=== PATIENT | male | born 1965 | race Caucasian/White ===

== ENCOUNTER 2021-03-05 22:08 | Emergency (ER) | payer BC ==
--- NOTE | 2021-03-05 22:34 | EDM.PDOC ---
ED HPI GENERAL MEDICAL PROBLEM - General Chief Complaint: Gastrointestinal Problem Stated Complaint: PAIN IN TAILBONE AREA Time Seen by Provider: 03/05/21 22:34 Source of Information: Reports: Patient - History of Present Illness INITIAL COMMENTS - FREE TEXT/NARRATIVE: Rod Vincent is a 55 year old male that presents via triage with complaints of rectal pain over the course of the last year or longer. He notes that he was diagnosed with Covid on February 20 with symptoms beginning Saturday before that secludes of fever, body aches, cough, malaise, loss of taste or smell. Reports with the cough has had more increased rectal pain presents here for further assessment. Patient notes he been followed by his primary physician in [place] who is referred him to GI physician for follow-up colonoscopy as he had a colon polyp in 2012 by his last colonoscopy. Patient also notes he is primary physician Dr. Bullard recommended surgical follow-up for consideration of rubber band ligation for his hemorrhoids. Patient at home has previously used rectal cream without improvement. He is use Tylenol today for pain. Patient notes her last 2 days has had more rectal pain than baseline. He has had no fevers, abdominal pain, bloody or black stools. Patient is Covid symptoms has abated. Patient notes he gets his care through [facility] and due to the ER volumes tonight and him having to wait out in the parking lot prior to being seen he drove to this hospital for further assessment and care. Patient is to have a bowel movements without ongoing diarrhea or abdominal pain. He has not had recent bodies. Rectal Pain Score (Numeric/FACES): 8 - Related Data Allergies Allergy/AdvReac Type Severity Reaction Status Date / Time No Known Allergies Allergy Verified 03/05/21 22:38 Home Meds: Home Meds Acetaminophen [Tylenol] 2 tab PO Q6H PRN 03/05/21 [History] ED ROS GENERAL - Review of Systems Review Of Systems: See Below (all other 10 negative. Patient notes his Covid symptoms have abated. He has ongoing rectal pain as above.) ED EXAM, GI/ABD - Physical Exam Exam: See Below Exam Limited By: No Limitations General Appearance: Alert, Other (Sitting supine in the bed without difficulty.) Eyes: Bilateral: Normal Appearance Neck: Normal Inspection Respiratory/Chest: No Respiratory Distress, Lungs Clear Cardiovascular: Normal Peripheral Pulses, Regular Rate, Rhythm, Other (Heart rate 86 my exam.) GI/Abdominal Exam: Normal Bowel Sounds, Soft, Non-Tender, No Distention, No Mass Rectal (Males) Exam: Other (Multiple external hemorrhoids that are soft. They are friable. There is no fissures, fluctuance or perirectal abscess. Superior gluteal cleft is normal. The perineum visualized is normal.) Back Exam: Normal Inspection Extremities: Normal Inspection Neurological: Alert, Oriented, Normal Cognition, No Motor/Sensory Deficits Psychiatric: Normal Affect Skin Exam: Warm, Dry, No Rash Lymphatic: No Adenopathy Course - Vital Signs Text/Narrative:: Patient has signs of ongoing hemorrhoids. These are soft this time no evidence of life threats. Vitals are overall reassuring. Abdomen station is benign. Patient has had a recent Covid diagnosis and his Covid symptoms have abated. Supportive cares are indicated. Recommended to sitz bath, NSAIDs, Anusol, prior care follow-up in [place] and consideration of surgical intervention/ligation or banding as the patient has already discussed with primary care physician.. Return if fever, vomiting or black stools. Patient is medically still for discharge without life threats for emergent indications for surgery, imaging or antibiotics. Discharge meds: Motrin 6 oh mils p.o. 3 times daily quantity 21. Anusol suppository 25 mils OH every 12 hours quantity 20. Topical lidocaine 2%. Apply 1-2 mils OH every 8 hours as needed dispense 42 mils. Follow-up plan prior care physician for ongoing care and surgery as already referred. ER if worse or per discharge instructions for hemorrhoids. Patient is stable for discharge. At times conditions change or evolve. Please see discharge instructions and reasons to return and need for follow-up. Patient referred back to his primary care physician who is coordinating already with surgery for elective surgical repair of his hemorrhoids. There is currently no evidence of acute infection, abscess or indication for antibiotics/surgery. Patient be treated with medications as above and voiced understanding. He is comfortable with this plan and understands dental side effects of both medications. This record was completed with voice recognition and may contain errors in grammar, punctuation etc. Last Recorded V/S: Last Vital Signs Temp 36.6 C 03/05/21 22:39 Pulse 105 H 03/05/21 22:39 Resp 16 03/05/21 22:39 BP 137/85 03/05/21 22:39 Pulse Ox 97 03/05/21 22:39 - Orders/Labs/Meds Meds: Medications Discontinued Medications Generic Name Dose Route Start Last Admin Trade Name Krystal PRN Reason Stop Dose Admin Ibuprofen 600 mg 03/05/21 23:15 03/05/21 23:23 Ibuprofen 600 Mg Tab PO 03/05/21 23:16 600 mg ONETIME ONE Administration Lidocaine HCl 10 ml 03/05/21 23:15 03/05/21 23:23 Lidocaine 2% Jelly 10 Ml Urojet MUCMEM 03/05/21 23:16 10 ml ONETIME ONE Administration Departure - Departure Time of Disposition: 23:36 (stable) Disposition: Home, Self-Care 01 Condition: Good Clinical Impression: Hemorrhoids - Discharge Information *PRESCRIPTION DRUG MONITORING PROGRAM REVIEWED*: No *COPY OF PRESCRIPTION DRUG MONITORING REPORT IN PATIENT [place]HA: No Instructions: Hemorrhoids, [id number], Nonsurgical Procedures for Hemorrhoids, Care After, Hemorrhoids Referrals: Abbie Gallagher MD [Primary Care Provider] - Forms: ED Department Discharge Additional Instructions: Please call your primary care physician on Saturday for follow-up. You note you have discussed with your primary care physician follow-up with surgery for surgical treatment for your hemorrhoids. As you are recovering from Covid your surgery/intervention may potentially be delayed. Follow-up as scheduled for a colonoscopy. Please take warm baths twice a day, soaking your waist and rectum in the bathtub. Start Motrin 6 mg by mouth 3 times a day for rectal pain and discomfort. You may continue Tylenol. Use the topical cream for discomfort. Return if temperature above 100.4, vomiting, severe abdominal pain. Sepsis Event Note (ED) - Focused Exam Vital Signs: Vital Signs Temp Pulse Resp BP Pulse Ox 03/05/21 22:39 36.6 C 105 H 16 137/85 97 03/05/21 22:27 36.6 C 105 H 16 137/85 97
[2021-03-05] MEDS ORDERED: Ibuprofen 600 MG Tab PO ONE (23:15)
[2021-03-05] MEDS ORDERED: Lidocaine 2% Jelly 10 ML Urojet MUCMEM ONE (23:15)
== END 2021-03-06 00:01 | disposition home or self-care (01) ==
LOC: JP.ED 22:08
DX: K64.4 Residual hemorrhoidal skin tags (principal)
CPT/HCPCS: 99283; A9270

== ENCOUNTER 2021-04-17 19:30 | Emergency (ER) | payer BC ==
[2021-04-17] MEDS ORDERED: Ketorolac 30 MG/ML SDV IM ONE (20:06)
[2021-04-17] MEDS ORDERED: Methocarbamol 500 MG Tab PO ONE (20:06)
--- NOTE | 2021-04-17 20:06 | EDM.PDOC ---
ED HPI GENERAL MEDICAL PROBLEM - General Chief Complaint: Lower Extremity Injury/Pain Stated Complaint: sciatica pain Time Seen by Provider: 04/17/21 19:54 Source of Information: Reports: Patient History Limitations: Reports: No Limitations - History of Present Illness INITIAL COMMENTS - FREE TEXT/NARRATIVE: Is a 55-year-old male presenting to the ED for evaluation of low back pain causing sciatica down his right leg to the foot. The patient symptoms started several weeks ago and he is unsure what actually triggered the symptoms but he has had increasing discomfort in the low back that is now spread to coming around the front of the pelvis and extending down the lateral leg to the foot. He denies any weakness. He has had intermittent numbness in the lower extremity on the right. He has been into 3 different chiropractors and has undergone 5 different therapies. His latest chiropractor stated he should be seen in a medical facility because of the likelihood that this is a degenerative disc problem. He normally goes to [facility] but was told that they cannot see him for the next 2 weeks so he came down here. He tries to avoid the emergency room at [facility] because of bad experiences. I did express to him that we would do the best we could but that we did not have MRI available tonight as this is a critical access hospital with a limited tool box. He denies any loss of bowel or bladder control, saddle anesthesia, new onset of weakness or balance. Has been trying to control his pain with Tylenol and ibuprofen without success. - Related Data Allergies Allergy/AdvReac Type Severity Reaction Status Date / Time No Known Allergies Allergy Verified 04/17/21 19:46 Home Meds: Home Meds Acetaminophen [Tylenol] 2 tab PO Q6H PRN 03/05/21 [History] methocarbamoL [Methocarbamol] 750 mg PO QID PRN #28 tablet 04/17/21 [Rx] Past Medical History HEENT History: Reports: Cataract Cardiovascular History: Reports: High Cholesterol Musculoskeletal History: Reports: Fracture - Infectious Disease History Infectious Disease History: Reports: Chicken Pox, Novel Coronavirus, Shingles - Past Surgical History HEENT Surgical History: Reports: Cataract Surgery GI Surgical History: Reports: Colonoscopy Social & Family History - Family History Family Medical History: No Pertinent Family History - Tobacco Use Tobacco Use Status *Q: Never Tobacco User - Caffeine Use Caffeine Use: Reports: Coffee - Recreational Drug Use Recreational Drug Use: No Review of Systems - Review of Systems Review Of Systems: See Below Constitutional: Reports: No Symptoms Cardiovascular: Reports: No Symptoms GI/Abdominal: Reports: No Symptoms Genitourinary: Reports: No Symptoms Musculoskeletal: Reports: Back Pain, Leg Pain (Right lower extremity), Joint Pain (Pelvis and right hip with pain radiating down the lateral right leg to the foot). Denies: Joint Swelling Skin: Reports: No Symptoms Neurological: Reports: Difficulty Walking (Secondary to back pain). Denies: Paresthesia, Weakness Psychiatric: Reports: Anxiety ED EXAM, GENERAL - Physical Exam Exam: See Below Exam Limited By: No Limitations General Appearance: Alert, Anxious, Moderate Distress Head: Atraumatic, Normocephalic Neck: Normal Inspection, Supple, Non-Tender, Full Range of Motion Back Exam: Decreased Range of Motion (Pain in the lumbar region of the back), Muscle Spasm (Bilateral right greater than left paraspinal spasm), Paraspinal Tenderness (Right greater than left). No: Vertebral Tenderness Extremities: Normal Range of Motion (Except at the hips secondary to the back pain) Neurological: Alert, Oriented, Normal Cognition, No Motor/Sensory Deficits, Other (Positive leg raise on the left at 60 degrees with pain on the right. Positive leg raise on the right at 15 degrees with pain on the right.) Psychiatric: Anxious Skin Exam: Warm, Dry Course - Vital Signs Last Recorded V/S: Last Vital Signs Temp 36.8 C 04/17/21 19:52 Pulse 91 04/17/21 19:52 Resp 20 04/17/21 19:52 BP 171/111 H 04/17/21 19:52 Pulse Ox 96 04/17/21 19:52 - Orders/Labs/Meds Meds: Medications Discontinued Medications Generic Name Dose Route Start Last Admin Trade Name Jayq PRN Reason Stop Dose Admin Ketorolac Tromethamine 30 mg 04/17/21 20:06 04/17/21 20:58 Ketorolac 30 Mg/Ml Sdv IM 04/17/21 20:07 30 mg ONETIME ONE Administration Methocarbamol 1,000 mg 04/17/21 20:06 04/17/21 20:58 Methocarbamol 500 Mg Tab PO 04/17/21 20:07 1,000 mg ONETIME ONE Administration - Radiology Interpretation Free Text/Narrative:: I reviewed the images of the CT of the lumbar spine without contrast as well as the report. The report is as follows: Findings: No fracture. No spondylolisthesis. Severe degenerative disc disease L2-3 with discogenic sclerosis and anterior spurring. Moderately severe degenerative disc disease L5-S1. Mild facet degeneration L5-S1. No paraspinal soft tissue mass. Right paracentral disc herniation L4-5 with obscuration of the neural foraminal fat and stenosis of the right lateral recess. Impression: Right paracentral disc herniation L4-5. Please note that all CT scans at this facility use dose modulation, iterative reconstruction, and/or weight-based dosing when appropriate to reduce radiation dose to as low as reasonably achievable. Dictated by Eugenio Butt MD @ 04/17/2021 9:23:39 PM - Re-Assessments/Exams Free Text/Narrative Re-Assessment/Exam: 04/17/21 21:[address] of the lumbar spine reveals significant degenerative disc disease with disc herniation at L4-L5 causing paracentral bulging. The patient also has significant collapse of disc at L2-L3 with sclerosis of the bone and hypertrophy as well as L5-S1. These are also contributing to his symptoms. There is nothing I can acutely do for him except for start him on steroids to hopefully reduce inflammation, start him on methocarbamol to reduce muscle spasm and have him continue with NSAIDs for pain. I will give him a small amount of hydrocodone to bridge him until the steroids can kick in. I encouraged the patient to contact his primary care provider at [facility] tomorrow for him to review the report and images of the CT and facilitate further work-up and care. I did give the patient information about neurosurgeon [place] the name of Umesh Flanagan MD at [facility] in [place]. Indications to return to the ED were discussed and the patient was discharged in satisfactory condition. Departure - Departure Time of Disposition: 21:53 Disposition: Home, Self-Care 01 Clinical Impression: Degenerative disc disease, lumbar, Osteoarthritis of spine with radiculopathy, lumbar region, Right sided sciatica - Discharge Information Prescriptions: methocarbamoL [Methocarbamol] 750 mg PO QID PRN #28 tablet PRN Reason: Muscle Spasm - Painful Instructions: Degenerative Disk Disease, Sciatica, Spondylolysis Referrals: PCP,None [Primary Care Provider] - Forms: ED Department Discharge Care Plan Goals: The images have been pushed to [facility] Camargo for your primary care provider's review. In addition you will have a disc to accompany you to the visit. I recommend contacting your primary care provider in the morning to have him review the study and further the evaluation of your back. The neurosurgeon that I recommend is Dr. Umesh Flanagan MD who is at [facility] in [place] and [facility] in [place]. We are starting you on therapy with methocarbamol 750 mg 4 times a day as needed for muscle spasm, prednisone 50 mg daily for the next 5 days to reduce inflammation, continue the Tylenol and ibuprofen for the baseline of pain control with sporadic use of hydrocodone for breakthrough pain. Please return to the ED for reevaluation should you develop any saddle anesthesia ([id number] around the rectum and groin), new onset of weakness in the lower extremities, or inability to hold your water or stool. These 3 things are considered neurologic emergencies and would require an intervention fairly quickly to prevent permanent damage. Sepsis Event Note (ED) - Evaluation Sepsis Screening Result: No Definite Risk - Focused Exam Vital Signs: Vital Signs Temp Pulse Resp BP Pulse Ox 04/17/21 19:52 36.8 C 91 20 171/111 H 96 - Problem List & Annotations (1) Degenerative disc disease, lumbar SNOMED Code(s): 71658159 Code(s): M51.36 - OTHER INTERVERTEBRAL DISC DEGENERATION, LUMBAR REGION Status: Acute Priority: High Current Visit: Yes (2) Osteoarthritis of spine with radiculopathy, lumbar region SNOMED Code(s): 143207600, 289459000, 423289975, 052213818 Code(s): M47.26 - OTHER SPONDYLOSIS WITH RADICULOPATHY, LUMBAR REGION Status: Acute Priority: High Current Visit: Yes (3) Right sided sciatica SNOMED Code(s): 38358006 Code(s): M54.31 - SCIATICA, RIGHT SIDE Status: Acute Priority: High Current Visit: Yes - Problem List Review Problem List Initiated/Reviewed/Updated: Yes
--- NOTE | 2021-04-17 21:24 | CRLCT ---
For Patients: As a result of the Cures Act, medical imaging exams and procedure reports are released immediately into your electronic medical record. You may view this report before your referring provider. If you have questions, please contact your health care provider. Indication: low back pain with right sided sciatica Technique: Noncontrast CT lumbar spine Please note that all CT scans at this facility use dose modulation, iterative reconstruction, and/or weight-based dosing when appropriate to reduce radiation dose to as low as reasonably achievable. Comparison: None Findings: No fracture. No spondylolisthesis. Severe degenerative disc disease L2-3 with discogenic sclerosis and anterior spurring. Moderately severe degenerative disc disease L5-S1. Mild facet degeneration L5-S1. No paraspinal soft tissue mass. Right paracentral disc herniation L4-5 with obscuration of the neural foraminal fat and stenosis of the right lateral recess. Impression: Right paracentral disc herniation L4-5. Please note that all CT scans at this facility use dose modulation, iterative reconstruction, and/or weight-based dosing when appropriate to reduce radiation dose to as low as reasonably achievable. Dictated by Eugenio Butt MD @ 04/17/2021 9:23:39 PM (Electronically Signed)
== END 2021-04-17 22:21 | disposition home or self-care (01) ==
LOC: JP.ED 19:30
DX: M51.16 Intervertebral disc disorders with radiculopathy, lumbar region (principal); M47.26 Other spondylosis with radiculopathy, lumbar region
CPT/HCPCS: 72131; 96372; 99283; A9270; J1885